=== PATIENT | male | born 1995 | race African-American/Black ===

== ENCOUNTER 2017-02-23 22:28 | Emergency (ER) | payer SELFPAY ==
[~2017-02-23] VITALS: Ht 175.3 cm; Wt 105.0 kg
[~2017-02-23 22:28] MED LIST: BACT800T5 PO; CEPH-460 PO; HYDR.5%T TOPICAL
[2017-02-23 22:30] VITALS: BP 184/104; PULSE 97; RESP 16; TEMP 100.7; O2SAT 100
[2017-02-23] MEDS ORDERED: AMOX500C PO (23:00)
--- NOTE | 2017-02-23 23:04 | PD ---
HPI Chief Complaint: ENT Complaint Time Seen by Provider: 22:39 Travel History International Travel<30 days: No Contact w/Intl Traveler<30days: No Traveled to known affect area: No History of Present Illness HPI 21-year-old black male presents to emergency department with sore throat 2 days. His symptoms are moderate. Worse with swallowing. No alleviating factors. Patient admits to subjective fever and chills. He denies any ear pain , shortness of breath, cough, nausea, vomiting, diarrhea, abdominal pain, urinary symptoms or rashes. PFSH Past Medical History Asthma: Yes (CHILDHOOD) Autoimmune Disease: No Cardiovascular Problems: No Diminished Hearing: No Genitourinary: No Musculoskeletal: No Neurologic: No Psychiatric: No Respiratory: No Immunizations Current: Yes Social History Alcohol Use: No Tobacco Use: No Substance Use: No Allergies-Medications (Allergen,Severity, Reaction): Coded Allergies: No Known Allergies (Unverified Adverse Reaction, Unknown, 02/23/17) Reported Meds & Prescriptions Reported Meds & Active Scripts Active Amoxicillin 500 Mg Cap 500 Mg PO TID Hydrocortisone Topical (Hydrocortisone) 0.5% Oint 1 Applic TOPICAL QID 14 Days Keflex (Cephalexin) 500 Mg Cap 500 Mg PO Q6H 10 Days Bactrim DS (Sulfamethoxazole-Trimethoprim) 800-160 Mg Tab 1 Tab PO BID 14 Days Review of Systems General / Constitutional: Positive: Fever, Chills Eyes: No: Visual changes HENT: Positive: Sore Throat, No: Headaches, Ear Discharge, Earache Cardiovascular: No: Chest Pain or Discomfort Respiratory: No: Cough, Shortness of Breath Gastrointestinal: No: Abdominal Pain Genitourinary: No: Dysuria Musculoskeletal: No: Pain Skin: No Rash Neurologic: No: Weakness Psychiatric: No: Depression Endocrine: No: Polydipsia Hematologic/Lymphatic: No: Easy Bruising Physical Exam Narrative GENERAL: Well-developed, well-nourished in no acute distress. Nontoxic appearing. HEAD: Normocephalic, atraumatic. EYES: Pupils equal round and reactive. Extraocular motions intact. No scleral icterus. No injection or drainage. ENT: TMs clear without erythema. The external auditory canals clear. Nose: clear . Posterior pharynx is erythematous and moist. Positive tonsillar edema with a small amount of white exudate. Uvula midline. Airway patent. NECK: Trachea midline.Supple, nontender, moves head freely. No central bony tenderness or spasm. Positive tonsillar and cervical adenopathy CARDIOVASCULAR: Regular rate and rhythm without murmurs, gallops, or rubs. RESPIRATORY: Clear to auscultation. Breath sounds equal bilaterally. No wheezes , rales, or rhonchi. GASTROINTESTINAL: Abdomen soft, non-tender, nondistended. No hepato-splenomegaly , or palpable masses. No guarding. EXTREMITIES: No clubbing, cyanosis, or edema. No joint tenderness, effusion, or edema noted. BACK: Nontender without deformity or crepitance. No flank tenderness. Data Data Last Documented VS Vital Signs Date Time Temp Pulse Resp B/P (MAP) Pulse Ox O2 Delivery O2 Flow Rate FiO2 02/23/17 22:30 100.7 97 16 184/104 (130) 100 Room Air MDM Medical Decision Making Medical Screen Exam Complete: Yes Emergency Medical Condition: Yes Medical Record Reviewed: Yes Differential Diagnosis MDM: High Differential diagnoses: Strep throat, viral pharyngitis, mono, peritonsillar abscess, retropharyngeal abscess, Carter's angina Narrative Course This is acute pharyngitis. Patient given amoxicillin 1 g by mouth. Diagnosis Primary Impression: acute pharyngitis Patient Instructions: General Instructions Departure Forms: Tests/Procedures, Work Release Special Instructions: No work 2 days. Additional Instructions: Rest. Force fluids. Saltwater gargles. Tylenol and Advil. Chloraseptic [place] Cepastat lozenge. Amoxicillin. Follow-up with a primary care doctor in one week. Return to the ER if any problems. Med/Other Pt SpecificInfo: Prescription(s) given Scripts Amoxicillin (Amoxicillin) 500 Mg Cap 500 MG PO TID for Infection, #30 CAP 0 Refills Prov: Shreyas Juárez MD 02/23/17 Disposition: 01 DISCHARGE HOME Condition: Stable Colton Barrow Feb 23, 2017 23:04
[2017-02-23] MEDS ORDERED: AMOXICILLIN (TRIHYDRATE) 500 MG CAP PO ONE (23:15)
== END 2017-02-23 23:31 | disposition home or self-care (01) ==
LOC: NEPD 22:28
DX: J02.9 Acute pharyngitis, unspecified (principal)
CPT/HCPCS: 99283